=== PATIENT | female | born 1970 | race Caucasian/White ===

== ENCOUNTER → 2016-10-05 16:45 | Outpatient (CLI) | payer BC | END | disposition home or self-care (01) | LOC: D.MAMMO 09-29 11:30 | DX: Z12.31 Encounter for screening mammogram for malignant neoplasm of breast (principal) ==

== ENCOUNTER 2018-04-25 11:02 | Observation (INO) | payer OTHER ==
[~2018-04-25] VITALS: Ht 175.3 cm; Wt 108.2 kg
[2018-04-25] MEDS ORDERED: CONCERTA 27 MG27 MG PO (11:09)
[2018-04-25 11:54] LABS: BASOPHILS 0.1 % (0-2); EOSINOPHILS 0.2 % (0-7); HEMATOCRIT 37.1 % (36.0-48.0); HEMOGLOBIN 12.8 g/dL (12-16); IMMATURE GRANULOCYTES 0.1 % (0-5); MCH 30.6 pg (26.0-34.0); MCHC 34.5 g/dL (31.0-37.0); MCV 88.8 fL (80.0-100.0); MEAN PLATELET VOLUME 11.3 fL (7.4-10.4); MONOCYTES 5.3 % (2-11); NEUTROPHILS 80.3 % (40-80); PLATELET COUNT 198 10x3/uL (130-400); RBC 4.18 10x6/uL (4.00-5.40); RDW 12.6 % (11.5-14.5); WBC 10.4 10x3/uL (4.8-10.8)
[2018-04-25 12:00] VITALS: BP 114/56
[2018-04-25 12:12] LABS: ALBUMIN 3.6 g/dL (3.4-5.0); ALKALINE PHOSPHATASE 57 U/L (46-116); ALT (SGPT) 23 U/L (10-68); BILIRUBIN - TOTAL 0.54 mg/dL (0.2-1.3); CALC OSMOLALITY 275 mosm/kg (275-300); CALCIUM 8.5 mg/dL (8.5-10.1); CARBON DIOXIDE 25.2 mmol/L (21.0-32.0); CHLORIDE - SERUM 101 mmol/L (98-107); CREATININE - SERUM 0.9 mg/dL (0.6-1.3); GLUCOSE 111 mg/dL (74-106); POTASSIUM - SERUM 3.3 mmol/L (3.5-5.1); PROTEIN - SERUM 7.2 g/dL (6.4-8.2); SODIUM 137 mmol/L (136-145); UREA NITROGEN 14 mg/dL (7-18); eGFR NON AFRICAN AMERICAN 71 mL/min (90-120)
[2018-04-25 12:23] LABS: AMYLASE - SERUM 27 U/L (25-115); CKMB 0.6 U/L (0.0-3.6); CREATINE KINASE 117 UL (21-215); LIPASE 100 U/L (73-393)
[2018-04-25 14:00] VITALS: BP 118/62
[2018-04-25 14:53] LABS: APPEARANCE CLEAR (CLEAR); BILIRUBIN NEGATIVE (NEGATIVE); COLOR YELLOW (YELLOW); GLUCOSE NEGATIVE (NEGATIVE); KETONE SMALL mg/dL (NEGATIVE); NITRITE NEGATIVE (NEGATIVE); PROTEIN NEGATIVE (NEGATIVE); UROBILINOGEN NORMAL (NORMAL)
[2018-04-25 16:00] VITALS: BP 110/64
[2018-04-25 17:12] LABS: CKMB 0.9 U/L (0.0-3.6); CREATINE KINASE 127 UL (21-215)
[2018-04-25 17:14] LABS: TROPONIN-I < 0.017 ng/mL (0.000-0.060)
[2018-04-25 18:21] VITALS: BP 125/71; Ht 175.3 cm; Wt 108.2 kg
[2018-04-25 20:00] VITALS: BP 107/61
[2018-04-25 22:32] LABS: CKMB 0.6 U/L (0.0-3.6); CREATINE KINASE 118 UL (21-215); TROPONIN-I < 0.017 ng/mL (0.000-0.060)
[2018-04-26] VITALS: BP 118/61
[2018-04-26 04:00] VITALS: BP 113/63
[2018-04-26 05:38] LABS: BASOPHILS 0.2 % (0-2); EOSINOPHILS 0.5 % (0-7); HEMATOCRIT 34.3 % (36.0-48.0); HEMOGLOBIN 11.4 g/dL (12-16); IMMATURE GRANULOCYTES 0.2 % (0-5); LYMPHOCYTES 34.5 % (15-50); MCH 30.2 pg (26.0-34.0); MCHC 33.2 g/dL (31.0-37.0); MEAN PLATELET VOLUME 11.8 fL (7.4-10.4); MONOCYTES 8.2 % (2-11); NEUTROPHILS 56.4 % (40-80); PLATELET COUNT 185 10x3/uL (130-400); RBC 3.77 10x6/uL (4.00-5.40); RDW 12.9 % (11.5-14.5)
[2018-04-26 05:48] LABS: WBC 6.4 10x3/uL (4.8-10.8)
[2018-04-26 06:12] LABS: ALBUMIN 2.9 g/dL (3.4-5.0); ALKALINE PHOSPHATASE 54 U/L (46-116); ALT (SGPT) 13 U/L (10-68); CALC OSMOLALITY 279 mosm/kg (275-300); CALCIUM 7.5 mg/dL (8.5-10.1); CARBON DIOXIDE 26.4 mmol/L (21.0-32.0); CHLORIDE - SERUM 109 mmol/L (98-107); CKMB 0.6 U/L (0.0-3.6); CREATINE KINASE 104 UL (21-215); CREATININE - SERUM 0.7 mg/dL (0.6-1.3); GLUCOSE 97 mg/dL (74-106); POTASSIUM - SERUM 3.8 mmol/L (3.5-5.1); PROTEIN - SERUM 6.1 g/dL (6.4-8.2); SODIUM 141 mmol/L (136-145); TROPONIN-I < 0.017 ng/mL (0.000-0.060); UREA NITROGEN 9 mg/dL (7-18); eGFR NON AFRICAN AMERICAN > 90 mL/min (90-120)
[2018-04-26 08:06] VITALS: BP 113/66
[2018-04-26 11:40] VITALS: BP 123/68
== END 2018-04-26 15:56 | disposition home or self-care (01) ==
LOC: D.ER 11:02 → D.M2 16:28 → OBSVTIME 16:28 → D.M2 16:28
PROVIDERS: Family Medicine
DX: R55 Syncope and collapse (principal); R42 Dizziness and giddiness; E87.6 Hypokalemia; R11.2 Nausea with vomiting, unspecified

== ENCOUNTER → 2018-07-25 16:35 | Outpatient (CLI) | payer OTHER ==
[2018-04-25 18:21] VITALS: BMI 35.2
[~2018-07-25 16:35] MED LIST: CONCERTA 27 MG27 MG PO
== END | disposition home or self-care (01) ==
LOC: D.MAMMO 07-20 15:45
DX: Z12.31 Encounter for screening mammogram for malignant neoplasm of breast (principal)

== ENCOUNTER → 2018-08-21 08:02 | Outpatient (CLI) | payer OTHER ==
[2018-04-25 18:21] VITALS: BMI 35.2
== END | disposition home or self-care (01) ==
LOC: D.CT 08:02
DX: R22.1 Localized swelling, mass and lump, neck (principal)

== ENCOUNTER 2020-12-08 17:27 | Outpatient (CLI) | payer OTHER ==
[2018-04-25 18:21] VITALS: BMI 35.2
== END 2020-12-08 23:59 | disposition home or self-care (01) ==
LOC: D.MAMMO 17:27
PROVIDERS: ATTEND Family Medicine
DX: Z12.31 Encounter for screening mammogram for malignant neoplasm of breast (principal)